=== PATIENT | male | born 1960 | race American Indian/Alaskan Native ===

== ENCOUNTER 2017-12-27 22:05 | Emergency (ER) | payer BC ==
[2017-12-27] MEDS ORDERED: ASPIRIN PO ONE (22:45)
[2017-12-27 23:25] LABS: Basophils # (Auto) 0.1 K/mm3 (0.0-0.1); Eosinophils # (Auto) 0.1 K/mm3 (0.0-0.4); Eosinophils % (Auto) 1.3 % (0.0-4.3); Hemoglobin 14.2 gm/dl (11.8-15.2); Lymphocytes # (Auto) 3.4 K/mm3 (1.2-5.4); Lymphocytes % (Auto) 33.9 % (13.4-35.0); Mean Corpuscular HGB Conc 33 % (32-34); Mean Corpuscular Hemoglobin 29 pg (28-32); Mean Corpuscular Volume 89 fl (84-94); Monocytes # (Auto) 0.9 K/mm3 (0.0-0.8); Monocytes % (Auto) 8.5 % (0.0-7.3); Platelet Count 162 K/mm3 (140-440); Red Blood Count 4.86 M/mm3 (3.65-5.03); Red Cell Distribution Width 13.8 % (13.2-15.2)
--- NOTE | 2017-12-27 23:31 | XRay Report ---
FINAL REPORT PROCEDURE: XR CHEST ROUTINE 2V TECHNIQUE: PA and lateral chest radiographs were obtained. CPT 24393 HISTORY: SOB COMPARISON: No prior studies are available for comparison. FINDINGS: Heart: Normal. Mediastinum/Vessels: Normal. Lungs/Pleural space: Normal. Bony thorax: No acute osseous abnormality. Other: IMPRESSION: Normal examination.
[2017-12-27 23:40] LABS: BUN/Creatinine Ratio 16; Blood Urea Nitrogen 16 mg/dL (9-20); Calcium 8.5 mg/dL (8.4-10.2); Hemolysis Index 4
[2017-12-28] MEDS ORDERED: ASPIRIN ONE (04:20)
[2017-12-28 07:06] VITALS: BP 137/90
--- NOTE | 2017-12-28 08:41 | Emergency Department Report ---
ED Chest Pain HPI - General Chief Complaint: Chest Pain Stated Complaint: CHEST PAIN Time Seen by Provider: 12/28/17 07:09 Source: patient, family, old records reviewed (none) Mode of arrival: Ambulatory Limitations: No Limitations - History of Present Illness Initial Comments: 57-year-old male with a past medical history of obesity, hypertension, elevated cholesterol, and an occasional smoker presents to the hospital with complains of chest pain 2 weeks. Pain is in the middle of the chest, intermittent, stabbing, rated 4/10 in intensity. No aggravating or alleviating factors. Positive shortness of breath. Patient denies nausea, vomiting, diaphoresis, recent travel, history of PE/DVT PE. Denies immediate family history of CAD. Last stress test was 7-8 years ago. PMD: Dr. Toma Ochoa. Marketing Technologist: None - Related Data Previous Rx's Medication Instructions Recorded Last Taken Type Aspirin EC [Aspirin Enteric Coated 325 mg PO QDAY #30 tablet. 12/28/17 Unknown Rx TAB] Allergies Allergy/AdvReac Type Severity Reaction Status Date / Time No Known Allergies Allergy Unverified 12/27/17 22:40 Heart Score - HEART Score History: Slightly suspicious EKG: Non-specific Age: 45-65 Risk factors: > 3 risk factors or hx of atherosclerotic disease Troponin: < normal limit HEART Score: 4 ED Review of Systems ROS: Stated complaint: CHEST PAIN Other details as noted in HPI Comment: All other systems reviewed and negative ED Past Medical Hx - Past Medical History Previous Medical History?: Yes Hx Hypertension: Yes Additional medical history: high cholesterol - Surgical History Past Surgical History?: Yes Hx Appendectomy: Yes Additional Surgical History: Leg - Social History Smoking Status: Current Every Day Smoker Substance Use Type: Alcohol, Marijuana - Medications Home Medications: Home Medications Medication Instructions Recorded Confirmed Last Taken Type Aspirin EC [Aspirin Enteric Coated 325 mg PO QDAY #30 tablet. 12/28/17 Unknown Rx TAB] ED Physical Exam - General Limitations: No Limitations - Other Other exam information: General: No limitations, patient is alert in no acute distress Head exam: Atraumatic, normocephalic Eyes exam: Normal appearance ENT: Moist mucous membrane, normal oropharynx Neck exam: Normal inspection, full range of motion, no meningismus nontender Respiratory exam: Clear to auscultation bilateral, no wheezes, rales, crackles Cardiovascular: Normal rate and rhythm, normal heart sounds, chest wall nontender Abdomen: Soft, nondistended, and nontender, with normal bowel sounds, no rebound, or guarding Extremity: Full range of motion normal inspection no deformity, no calf tenderness or edema Back: Normal Inspection, full range of motion, no tenderness Neurologic: Alert, oriented x3, cranial nerves intact, no motor or sensory deficit Psychiatric: normal affect, normal mood Skin: Warm, dry, intact ED Course Vital Signs 12/27/17 12/27/17 12/28/17 22:08 22:36 02:45 Temperature 97.9 F 98.5 F Pulse Rate 78 64 Respiratory 16 16 18 Rate Blood Pressure 140/92 130/52 O2 Sat by Pulse 96 98 100 Oximetry 12/28/17 12/28/17 12/28/17 03:40 03:46 04:00 Temperature Pulse Rate Respiratory Rate Blood Pressure 170/98 154/90 O2 Sat by Pulse 99 100 100 Oximetry 12/28/17 12/28/17 12/28/17 04:16 04:30 04:46 Temperature Pulse Rate Respiratory Rate Blood Pressure 154/90 152/82 152/82 O2 Sat by Pulse 100 99 99 Oximetry 12/28/17 12/28/17 12/28/17 05:00 05:16 05:30 Temperature Pulse Rate Respiratory Rate Blood Pressure 151/85 151/85 144/83 O2 Sat by Pulse 100 96 97 Oximetry 12/28/17 12/28/17 12/28/17 05:46 06:00 06:16 Temperature Pulse Rate Respiratory Rate Blood Pressure 144/83 144/74 144/74 O2 Sat by Pulse 100 99 98 Oximetry 12/28/17 12/28/17 12/28/17 06:30 06:46 07:00 Temperature Pulse Rate Respiratory Rate Blood Pressure 144/74 159/92 137/90 O2 Sat by Pulse 99 100 100 Oximetry ED Medical Decision Making - Lab Data Result diagrams: 12/27/17 22:55 12/27/17 22:55 Lab Results 12/27/17 12/27/17 12/28/17 Range/Units 22:55 22:55 01:57 WBC 10.1 (4.5-11.0) K/mm3 RBC 4.86 (3.65-5.03) M/mm3 Hgb 14.2 (11.8-15.2) gm/dl Hct 43.0 (35.5-45.6) % MCV 89 (84-94) fl MCH 29 (28-32) pg MCHC 33 (32-34) % RDW 13.8 (13.2-15.2) % Plt Count 162 (140-440) K/mm3 Lymph % (Auto) 33.9 (13.4-35.0) % Piute % (Auto) 8.5 H (0.0-7.3) % Eos % (Auto) 1.3 (0.0-4.3) % Baso % (Auto) 1.0 (0.0-1.8) % Lymph # 3.4 (1.2-5.4) K/mm3 Piute # 0.9 H (0.0-0.8) K/mm3 Eos # 0.1 (0.0-0.4) K/mm3 Baso # 0.1 (0.0-0.1) K/mm3 Seg Neutrophils % 55.3 (40.0-70.0) % Seg Neutrophils # 5.6 (1.8-7.7) K/mm3 D-Dimer (0-234) ng/mlDDU Sodium 148 H (137-145) mmol/L Potassium 3.7 (3.6-5.0) mmol/L Chloride 91.0 L (98-107) mmol/L Carbon Dioxide 30 (22-30) mmol/L Anion Gap 31 mmol/L BUN 16 (9-20) mg/dL Creatinine 1.0 (0.8-1.5) mg/dL Estimated GFR > 60 ml/min BUN/Creatinine Ratio 16 % Glucose 97 (75-100) mg/dL Calcium 8.5 (8.4-10.2) mg/dL Troponin T < 0.010 < 0.010 (0.00-0.029) ng/mL 12/28/17 12/28/17 Range/Units 05:27 08:05 WBC (4.5-11.0) K/mm3 RBC (3.65-5.03) M/mm3 Hgb (11.8-15.2) gm/dl Hct (35.5-45.6) % MCV (84-94) fl MCH (28-32) pg MCHC (32-34) % RDW (13.2-15.2) % Plt Count (140-440) K/mm3 Lymph % (Auto) (13.4-35.0) % Piute % (Auto) (0.0-7.3) % Eos % (Auto) (0.0-4.3) % Baso % (Auto) (0.0-1.8) % Lymph # (1.2-5.4) K/mm3 Piute # (0.0-0.8) K/mm3 Eos # (0.0-0.4) K/mm3 Baso # (0.0-0.1) K/mm3 Seg Neutrophils % (40.0-70.0) % Seg Neutrophils # (1.8-7.7) K/mm3 D-Dimer < 135.0 (0-234) ng/mlDDU Sodium (137-145) mmol/L Potassium (3.6-5.0) mmol/L Chloride (98-107) mmol/L Carbon Dioxide (22-30) mmol/L Anion Gap mmol/L BUN (9-20) mg/dL Creatinine (0.8-1.5) mg/dL Estimated GFR ml/min BUN/Creatinine Ratio % Glucose (75-100) mg/dL Calcium (8.4-10.2) mg/dL Troponin T < 0.010 (0.00-0.029) ng/mL - EKG Data -: EKG Interpreted by [facility] EKG shows normal: sinus rhythm, axis (qrs 40), QRS complexes (89), ST-T waves ( inf lat t inv) Rate: normal (57) - EKG Data When compared to previous EKG there are: previous EKG unavailable - Radiology Data Radiology results: report reviewed (cxr: naf) - Medical Decision Making Chest pain Atypical nature but patient has EKG abnormalities with no previous for comparison Cardiac enzymes negative 3, d-dimer less than 250 Admission recommended for stress testing Patient declined Prefers to follow up Understands risk of heart attack and Will sign AMA Empiric daily aspirin will be recommended - Differential Diagnosis MD, atypical chest pain, unstable angina, PE Critical Care Time: No Critical care attestation.: If time is entered above; I have spent that time in minutes in the direct care of this critically ill patient, excluding procedure time. ED Disposition Clinical Impression: Chest pain, Hypertension, Hx of hypercholesterolemia Disposition: DC- LEFT AGAINST MED ADVICE Is pt being admited?: No Condition: Stable Instructions: Hypertension (ED), Chest Pain (ED) Additional Instructions: You have declined admission at this time. Admission is necessary to rule out underlying heart disease that can lead to sudden heat attack and . you are signing out AGAINST MEDICAL ADVICE. Please return if symptoms worsen as indicated by the discharge instructions. Follow-up with the rotary slicing machine operator as soon as possible and primary care doctor. Prescriptions: Aspirin EC [Aspirin Enteric Coated TAB] 325 mg PO QDAY #30 tablet.dr Referrals: TOMA UGARTE MD [Primary Care Provider] - 3-5 Days SANTIAGO GIMENEZ MD [Staff Physician] - LISA (rotary slicing machine operator ) Forms: AMA Form Time of Disposition: 09:08
== END 2017-12-28 09:51 | disposition left against medical advice (07) ==
LOC: ED 22:05
DX: I10 Essential (primary) hypertension (principal); R07.9 Chest pain, unspecified; F17.200 Nicotine dependence, unspecified, uncomplicated; F12.10 Cannabis abuse, uncomplicated
CPT/HCPCS: 36415; 71046; 80048; 84484; 85025; 85379; 93005; 93010